=== PATIENT | female | born 1995 | race Caucasian/White ===

== ENCOUNTER 2018-02-19 19:58 | Emergency (ER) | payer SELFPAY ==
--- NOTE | 2018-02-19 20:04 | PDOC ---
Rapid Medical Evaluation Time Seen by Provider: 02/19/18 20:01 Medical Evaluation: 02/19/18 20:02 I have performed a brief in-person evaluation of this patient. The patient presents with a chief complaint of: rash to left upper arm x 2 weeks. Patient reports itching and rash spreading. Used unknown cream Pertinent physical exam findings are: NAD even and unlabored breathing grouped skin eruption on left upper arm I have ordered the following: none The patient will proceed o the Ed for further evaluation. Discharge Disposition - Referrals Referrals: Chad Holliday [Primary Care Provider] - - Patient Instructions - Post Discharge Activity
[2018-02-19 20:05] VITALS: BP 111/72; PULSE 90; TEMP 98.2; BMI 43.9
[2018-02-19] MEDS ORDERED: diphenhydrAMINE HCL 25 MG CAPSULE (FP) PO ONE ×2 (20:55→21:07)
--- NOTE | 2018-02-19 21:05 | PDOC ---
History of Present Illness - General Chief Complaint: Rash Stated Complaint: RASH Time Seen by Provider: 02/19/18 20:01 History Source: Patient Exam Limitations: No Limitations Past History - Travel Traveled outside of the country in the last 30 days: No Close contact w/someone who was outside of country & ill: No - Past Medical History Allergies/Adverse Reactions: Allergies Allergy/AdvReac Type Severity Reaction Status Date / Time No Known Allergies Allergy Verified 02/19/18 20:04 Home Medications: Ambulatory Orders Nystatin Cream [Mycostatin Cream -] 1 applic TP BID #1 tube 02/19/18 COPD: No - Suicide/Smoking/Psychosocial Hx Smoking History: Never smoked Review of Systems - Review of Systems Able to Perform ROS?: Yes Comments:: 02/19/18 20:58 review of sys Is the patient limited Amharic proficient: No *Physical Exam - Vital Signs Last Vital Signs Temp Pulse Resp BP Pulse Ox 98.2 F 90 18 111/72 98 02/19/18 20:01 02/19/18 20:01 02/19/18 20:01 02/19/18 20:01 02/19/18 20:01 *DC/Admit/Observation/Transfer Diagnosis at time of Disposition: Ringworm - Discharge Dispostion Disposition: HOME Condition at time of disposition: Stable Decision to Admit order: No - Referrals Referrals: Chad Holliday [Primary Care Provider] - Elizabeth Mora MD [Staff Physician] - - Patient Instructions Printed Discharge Instructions: DI for Ringworm Additional Instructions: You have ring worm Use they nystatin cream twice a day until the rash goes away You may take benadryl at night for itching Take a zyrtec once daily Follow up in one week with dermatology if your symptoms do not get better Please follow up in the ED if you have worsening rash, pruruent discharge, fevers, or any changes in your symptoms - Post Discharge Activity
== END 2018-02-19 21:09 | disposition home or self-care (01) ==
LOC: JERFT 19:58
DX: B35.9 Dermatophytosis, unspecified (principal)
CPT/HCPCS: 99281-25

== ENCOUNTER → 2018-11-02 | Emergency (ER) | payer SELFPAY ==
[2018-11-02 12:06] VITALS: BP 111/62; PULSE 70; TEMP 97.9; BMI 45.7
== END | disposition left against medical advice (07) ==
LOC: JERFT 11:22
DX: Z53.21 Procedure and treatment not carried out due to patient leaving prior to being seen by health care provider (principal)
CPT/HCPCS: 99281-25

== ENCOUNTER 2020-07-22 16:04 | Emergency (ER) | payer BC ==
[2020-07-22 16:20] VITALS: BP 136/73; PULSE 96; TEMP 98.4; BMI 45.7
== END 2020-07-22 17:28 | disposition home or self-care (01) ==
LOC: JER 16:04
DX: U07.1 COVID-19 (principal)
CPT/HCPCS: 71046-TC-FY; 99284-25; C9803; U0003

== ENCOUNTER 2023-10-13 12:06 | Emergency (ER) | payer BC ==
[2023-10-13 12:29] VITALS: BP 141/98; PULSE 101; RESP 18; TEMP 98.9; BMI 53.0
[2023-10-13] MEDS ORDERED: predniSONE 20 MG TABLET (UD) ONE (13:41)
[2023-10-13] MEDS ORDERED: ALBUTEROL SO4 2.5/IPRATROPIUM 0.5 INH SOL 3 ML VIAL.NEB. NEB ONE (13:41)
[2023-10-13] MEDS: ALBUTEROL SO4 2.5/IPRATROPIUM 0.5 INH SOL 3 ML VIAL.NEB. NEB ONE (13:41)
[2023-10-13] MEDS: predniSONE 20 MG TABLET (UD) PO ONE (13:41)
[2023-10-13 13:44] LABS: HEMATOCRIT 38.4 % (32.4-45.2); HEMOGLOBIN 12.7 GM/dL (10.7-15.3); MCH 28.8 pg (25.7-33.7); MCHC 33.2 g/dl (32.0-36.0); MEAN CELL VOLUME 86.9 fl (80-96); MEAN PLT VOLUME 7.8 fl (7.5-11.1); PLATELET COUNT 371 10^3/uL (134-434); RBC 4.42 M/mm3 (3.60-5.2); RDW 13.9 % (11.6-15.6); WHITE BLOOD COUNT 21.2 K/mm3 (4.0-10.0)
[2023-10-13 14:10] LABS: POTASSIUM 3.8 mmol/L (3.5-5.1)
[2023-10-13 14:11] LABS: CALCIUM 9.1 mg/dL (8.5-10.1)
[2023-10-13 14:12] LABS: ALBUMIN 3.4 g/dl (3.4-5.0); BLOOD UREA NITROGEN 9.1 mg/dL (7-18)
[2023-10-13 14:15] LABS: CREATININE 0.6 mg/dL (0.55-1.3)
[2023-10-13 14:17] LABS: BILIRUBIN,TOTAL 0.7 mg/dL (0.2-1); TOT PROT 7.6 g/dl (6.4-8.2)
[2023-10-13 14:18] LABS: ANISOCYTOSIS 1+; MACROCYTOSIS 0
== END 2023-10-13 14:36 | disposition home or self-care (01) ==
LOC: JER 12:06
PROC: 3E0F7GC Introduction of Other Therapeutic Substance into Respiratory Tract, Via Natural or Artificial Opening (ICD-10-PCS; principal; 2023-10-13)
DX: J45.41 Moderate persistent asthma with (acute) exacerbation (principal); J06.9 Acute upper respiratory infection, unspecified; R07.89 Other chest pain; R09.81 Nasal congestion; R05.9 Cough, unspecified; R06.02 Shortness of breath
CPT/HCPCS: 36415; 71046-TC-FY; 80053; 84484; 85025; 93005; 93010; 99285-25